=== PATIENT | male | born 1945 | race Caucasian/White ===

== ENCOUNTER 2016-09-04 06:56 | Emergency (ER) | payer MEDICARE, OTHER ==
[2016-09-04 08:01] LABS: BASOPHIL 0.4 % (0-2); EOSINOPHIL 2.2 % (0-7); HCT 45.6 % (42.0-52.0); LYMPHOCYTE 14.8 % (15-48); MCH 30.4 pg (25.0-31.0); MCHC 35.1 g/dL (32.0-36.0); MCV 86.7 fL (78.0-100.0); MONOCYTE 9.3 % (0-12); MPV 9.2 fL (6.0-9.5); NEUTROPHIL 73.3 % (41-80); PLT 199 K/uL (150-400); RBC 5.26 M/uL (4.70-6.00); RDW 12.9 % (11.5-14.0); WBC 7.2 K/uL (4.0-10.5)
[2016-09-04 08:20] LABS: CREATININE 0.9 mg/dL (0.7-1.2); POTASSIUM 4.1 mmol/L (3.5-5.1)
== END 2016-09-04 09:01 | disposition home or self-care (01) ==
LOC: FER 06:56
PROVIDERS: Internal Medicine
DX: J10.1 Influenza due to other identified influenza virus with other respiratory manifestations (principal); J44.9 Chronic obstructive pulmonary disease, unspecified; I10 Essential (primary) hypertension; F17.200 Nicotine dependence, unspecified, uncomplicated; Z79.899 Other long term (current) drug therapy; Z91.041 Radiographic dye allergy status; Z85.038 Personal history of other malignant neoplasm of large intestine
CPT/HCPCS: 36415; 71020; 80048; 85025; 87804; 87899; 94640; 94664

== ENCOUNTER → 2020-12-14 | Day surgery (SDC) | payer MEDICARE, OTHER ==
[~2020-12-14] VITALS: Ht 170.2 cm; Wt 93.2 kg
[~2020-12-14] MED LIST: AMLODIPINE-OLM1 EAC1 PO; BISOPROLOL FUMAR5 MG PO; CRESTOR10 MG PO; LEVO-T137 MCG PO; LOSARTAN-HCTZ1 EAC2 PO; METFORMIN HCL500 MG PO; PERCOCET 5-3251 EACH PO; TRAZODONE 100M100 MG PO
[2020-12-14 13:42] LABS: HCT 43.3 % (42.0-52.0); HGB 15.5 g/dl (13.2-18.0); MCH 30.8 pg (25.0-31.0); MCHC 35.8 g/dL (32.0-36.0); MCV 86.1 fL (78.0-100.0); MPV 8.7 fL (6.0-9.5); RBC 5.03 M/uL (4.70-6.00); RDW 12.2 % (11.5-14.0); WBC 8.6 K/uL (4.0-10.5)
[2020-12-14 14:53] LABS: ALBUMIN 3.8 g/dL (3.4-5.0); BILIRUBIN - TOTAL 0.4 mg/dL (0.2-1.0); BUN/CREAT RATIO (CALC) 15.1 RATIO; CREATININE 0.93 mg/dL (0.67-1.17); GLOBULIN (CALCULATION) 3.2 g/dL; POTASSIUM 3.9 mmol/L (3.5-5.1)
== END | disposition home or self-care (01) ==
LOC: FAS 12:38
PROVIDERS: Orthopaedic Surgery
DX: M65.332 Trigger finger, left middle finger (principal); E11.9 Type 2 diabetes mellitus without complications; I10 Essential (primary) hypertension; E78.00 Pure hypercholesterolemia, unspecified; E03.9 Hypothyroidism, unspecified; F17.210 Nicotine dependence, cigarettes, uncomplicated; M19.90 Unspecified osteoarthritis, unspecified site; F43.10 Post-traumatic stress disorder, unspecified; Z91.041 Radiographic dye allergy status; Z91.048 Other nonmedicinal substance allergy status; Z88.1 Allergy status to other antibiotic agents; Z79.84 Long term (current) use of oral hypoglycemic drugs; Z79.891 Long term (current) use of opiate analgesic; Z79.899 Other long term (current) drug therapy
CPT/HCPCS: 36415; 80053; 93005; J1100; J1885; J2250; J2405; J2704; J7120

== ENCOUNTER 2022-01-18 17:22 | Emergency (ER) | payer MEDICARE, OTHER | END 2022-01-18 19:49 | disposition left against medical advice (07) | LOC: FER 17:22 | DX: M79.662 Pain in left lower leg (principal); Z53.29 Procedure and treatment not carried out because of patient's decision for other reasons; Z91.041 Radiographic dye allergy status; X58.XXXA Exposure to other specified factors, initial encounter | CPT/HCPCS: 73590 ==